=== PATIENT | male | born 1990 | race Caucasian/White ===

== ENCOUNTER 2023-05-10 22:02 | Emergency (ER) | payer SELFPAY ==
[~2023-05-10] VITALS: Ht 182.9 cm; Wt 92.0 kg
[2023-05-10 22:22] VITALS: BP 146/88; PULSE 92; RESP 16; TEMP 98.7; O2SAT 97
== END 2023-05-11 00:22 | disposition left against medical advice (07) ==
LOC: ER 22:02
DX: S19.9XXA Unspecified injury of neck, initial encounter (principal); V99.XXXA Unspecified transport accident, initial encounter; Y93.89 Activity, other specified; Y92.89 Other specified places as the place of occurrence of the external cause; Y99.8 Other external cause status
CPT/HCPCS: 99283